=== PATIENT | female | born 1975 | race Caucasian/White ===

== ENCOUNTER 2021-08-31 14:16 | Emergency (ER) | payer BC ==
[2021-08-31] MEDS ORDERED: Prochlorperazine 10 MG/2 ML VIAL ONE ×2 (14:44→14:46)
[2021-09-01 16:55] LABS: SARS-CoV-2 PCR by NAA DETECTED (NotDetected)
== END 2021-08-31 15:17 | disposition home or self-care (01) ==
LOC: MADERS 14:16
DX: U07.1 COVID-19 (principal); Z79.899 Other long term (current) drug therapy
CPT/HCPCS: 96372; 99284; J0780; U0003; U0005